=== PATIENT | male | born 1980 | race Caucasian/White ===

== ENCOUNTER 2020-02-27 21:55 | Emergency (ER) | payer MEDICAID | END 2020-02-27 22:30 | disposition home or self-care (01) | LOC: EDUNIT# 21:55 → MED 21:55 | DX: S16.1XXA Strain of muscle, fascia and tendon at neck level, initial encounter (principal); S30.0XXA Contusion of lower back and pelvis, initial encounter; W19.XXXA Unspecified fall, initial encounter; Y93.89 Activity, other specified; Y92.89 Other specified places as the place of occurrence of the external cause; Y99.8 Other external cause status | CPT/HCPCS: 99283 ==

== ENCOUNTER 2020-09-19 18:56 | Emergency (ER) | payer MEDICAID ==
[~2020-09-19] VITALS: Ht 170.2 cm; Wt 70.3 kg
[2020-09-19 19:02] VITALS: BP 99/65
--- NOTE | 2020-09-19 19:11 | NUR ---
Patient ambulated to bed 03 with steady/even gait.
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
--- NOTE | 2020-09-19 19:13 | NUR ---
Patient ambulated to the bathroom for urine collection
--- NOTE | 2020-09-19 19:46 | NUR ---
PAUL at [facility] for examination of the patient
--- NOTE | 2020-09-19 19:51 | NUR ---
Chelsea salinas in [facility] - 09/19/20 at 1951 by NATE jed at bedside 1946
--- NOTE | 2020-09-19 20:06 | NUR ---
d/c with VSS. d/c education given. opportunity to ask questions given and answered. no rx given.
== END 2020-09-19 20:05 | disposition home or self-care (01) ==
LOC: MED 18:56
DX: R42 Dizziness and giddiness (principal)
CPT/HCPCS: 81002; 99282